=== PATIENT | female | born 1955 | race African-American/Black ===

== ENCOUNTER → 2022-07-13 | Outpatient (CLI) | payer BC ==
[2022-07-13 10:46] LABS: Basophils # (auto) 0.1 10 ^3/uL (0-0.2); Basophils % (auto) 0.9 % (0.0-2.0); Eosinophils # (auto) 0.2 10 ^3/uL (0-0.8); Eosinophils % (auto) 2.9 % (0.0-7.0); Hematocrit 38.3 % (36.0-46.0); Hemoglobin 13.3 g/dL (12.2-16.2); Lymphocytes # (auto) 2.3 10 ^3/uL (0.4-5.4); Mean Corpuscular Hgb Conc. 34.6 g/dL (32.0-36.0); Mean Corpuscular Volume 80.9 fL (80.0-100.0); Monocytes # (auto) 0.5 10 ^3/uL (0-1.3); Monocytes % (auto) 7.3 % (0.0-12.0); Neutrophils # (auto) 3.7 10 ^3/uL (1.6-8.6); Neutrophils % (auto) 54.9 % (37.0-80.0); Nucleated Red Blood Cells % 0.1 %; Red Blood Cells 4.74 10^6/uL (4.0-5.20); Red Cell Distribution Width 15.3 % (11.8-14.3); White Blood Cell 6.8 10^3/uL (4.4-10.8)
[2022-07-13 11:16] LABS: Urine Bacteria NONE SEEN /hpf (None Seen); Urine Blood Negative /uL (Negative); Urine Mucus FEW (None Seen); Urine Specific Gravity 1.026 (1.001-1.035); Urine WBC 5 /hpf (0 - 5)
[2022-07-13 11:17] LABS: Potassium 3.6 mmol/L (3.5-5.1)
[2022-07-13 11:30] LABS: Albumin 3.4 g/dL (3.4-5.0); BUN/Creatinine Ratio 24.4 (10.0-20.0); Bilirubin, Total 0.4 mg/dL (0.2-1.0); Calcium 9.4 mg/dL (8.5-10.1); Total Protein 7.6 g/dL (6.4-8.2)
== END | disposition home or self-care (01) ==
LOC: LAB 09:56
PROVIDERS: ATTEND Family Medicine
DX: E11.65 Type 2 diabetes mellitus with hyperglycemia (principal); I10 Essential (primary) hypertension; E78.5 Hyperlipidemia, unspecified; G89.29 Other chronic pain
CPT/HCPCS: 36415; 80053; 80061; 81001; 83036; 84443; 85025

== ENCOUNTER → 2022-07-31 | Outpatient (CLI) | payer BC | END | disposition home or self-care (01) | LOC: LAB 06:37 | PROVIDERS: ATTEND Family Medicine | DX: E11.65 Type 2 diabetes mellitus with hyperglycemia (principal); I10 Essential (primary) hypertension; E78.5 Hyperlipidemia, unspecified | CPT/HCPCS: 82270 ==

== ENCOUNTER → 2022-12-21 | Outpatient (CLI) | payer BC ==
[2022-12-21 10:19] LABS: Alanine Aminotransferase 23 U/L (7-40); Alkaline Phosphatase 98 U/L (46-116); Anion Gap 4 (5-15); Aspartate Aminotransferase 24 U/L (13-40); BUN/Creatinine Ratio 14.2 (10.0-20.0); Bilirubin, Total 0.4 mg/dL (0.2-1.0); Blood Urea Nitrogen 15 mg/dL (9-23); Calcium 9.8 mg/dL (8.7-10.4); Carbon Dioxide 30 mmol/L (20-30); Chloride 108 mmol/L (98-107); Glucose 101 mg/dL (74-106); Potassium 3.8 mmol/L (3.5-5.1); Sodium 142 mmol/L (136-145); Total Protein 7.8 g/dL (5.7-8.2)
[2022-12-21 12:18] LABS: Triglycerides 67 mg/dL (< 150)
[2022-12-21 12:19] LABS: LDL Cholesterol 60 mg/dL (< 100)
[2022-12-21 12:20] LABS: Cholesterol 123 mg/dL (< 200); HDL Cholesterol 49 mg/dL (40-59)
[2022-12-21 12:35] LABS: Albumin 4.4 g/dL (3.2-4.8)
== END | disposition home or self-care (01) ==
LOC: LAB 08:41
PROVIDERS: ATTEND Family Medicine
DX: E11.65 Type 2 diabetes mellitus with hyperglycemia (principal); E78.5 Hyperlipidemia, unspecified
CPT/HCPCS: 36415; 80053; 80061; 83036

== ENCOUNTER 2022-12-29 20:11 | Emergency (ER) | payer BC ==
[~2022-12-29] VITALS: Ht 162.6 cm; Wt 75.9 kg
[2022-12-29 22:38] VITALS: BP 109/55; PULSE 82; RESP 16; TEMP 98.3; O2SAT 98
== END 2022-12-29 23:29 | disposition home or self-care (01) ==
LOC: ER 20:11
DX: S09.90XA Unspecified injury of head, initial encounter (principal); R51.9 Headache, unspecified; I10 Essential (primary) hypertension; Z88.6 Allergy status to analgesic agent; V43.52XA Car driver injured in collision with other type car in traffic accident, initial encounter; Y93.89 Activity, other specified; Y92.410 Unspecified street and highway as the place of occurrence of the external cause; Y99.8 Other external cause status
CPT/HCPCS: 70450; 72131

== ENCOUNTER → 2023-03-22 | Outpatient (CLI) | payer BC | END | disposition home or self-care (01) | LOC: LAB 12:06 | PROVIDERS: ATTEND Family Medicine | DX: Z12.11 Encounter for screening for malignant neoplasm of colon (principal); Z00.01 Encounter for general adult medical examination with abnormal findings | CPT/HCPCS: 82270 ==

== ENCOUNTER → 2023-03-23 | Outpatient (CLI) | payer BC ==
[2023-03-23 08:24] LABS: Basophils # (auto) 0.1 10 ^3/uL (0-0.2); Eosinophils # (auto) 0.1 10 ^3/uL (0-0.8); Hematocrit 36.5 % (36.0-46.0); Hemoglobin 12.5 g/dL (12.2-16.2); Lymphocytes # (auto) 2.6 10 ^3/uL (0.4-5.4); Lymphocytes % (auto) 43.8 % (10.0-50.0); Mean Corpuscular Hemoglobin 27.9 pg (28.0-32.0); Mean Corpuscular Hgb Conc. 34.2 g/dL (32.0-36.0); Mean Corpuscular Volume 81.7 fL (80.0-100.0); Monocytes # (auto) 0.4 10 ^3/uL (0-1.3); Monocytes % (auto) 7.4 % (0.0-12.0); Neutrophils # (auto) 2.7 10 ^3/uL (1.6-8.6); Neutrophils % (auto) 45.8 % (37.0-80.0); Nucleated Red Blood Cells % 0.1 %; Red Blood Cells 4.47 10^6/uL (4.0-5.20); Red Cell Distribution Width 14.8 % (11.8-14.3)
[2023-03-23 08:47] LABS: Urine Bacteria FEW /hpf (None Seen); Urine Blood Negative /uL (Negative); Urine Clarity Clear (Clear); Urine Color Colorless (Yellow); Urine Protein, UAD Negative (Negative); Urine Specific Gravity 1.012 (1.001-1.035); Urine Urobilinogen Normal (Negative); Urine WBC 2 /hpf (0 - 5)
[2023-03-23 08:55] LABS: Alanine Aminotransferase 29 U/L (7-40); Albumin 4.2 g/dL (3.2-4.8); Alkaline Phosphatase 100 U/L (46-116); Anion Gap 9 (5-15); Aspartate Aminotransferase 30 U/L (13-40); BUN/Creatinine Ratio 14.9 (10.0-20.0); Blood Urea Nitrogen 14 mg/dL (9-23); Calcium 9.6 mg/dL (8.5-10.1); Carbon Dioxide 27 mmol/L (20-30); Chloride 107 mmol/L (98-107); Glucose 97 mg/dL (74-106); LDL Cholesterol 67 mg/dL (< 100); Potassium 3.8 mmol/L (3.5-5.1); Sodium 143 mmol/L (136-145); Triglycerides 67 mg/dL (< 150)
[2023-03-23 08:56] LABS: Bilirubin, Total 0.4 mg/dL (0.2-1.0); Cholesterol 130 mg/dL (< 200); HDL Cholesterol 52 mg/dL (40-59); Total Protein 7.3 g/dL (5.7-8.2)
[2023-03-23 09:14] LABS: Uric Acid 6.3 mg/dL (3.1-7.8)
== END | disposition home or self-care (01) ==
LOC: LAB 08:10
PROVIDERS: ATTEND Family Medicine
DX: Z12.11 Encounter for screening for malignant neoplasm of colon (principal); I10 Essential (primary) hypertension; G44.209 Tension-type headache, unspecified, not intractable; Z12.4 Encounter for screening for malignant neoplasm of cervix; E11.65 Type 2 diabetes mellitus with hyperglycemia; E78.5 Hyperlipidemia, unspecified; E79.0 Hyperuricemia without signs of inflammatory arthritis and tophaceous disease; E78.49 Other hyperlipidemia; E88.01 Alpha-1-antitrypsin deficiency
CPT/HCPCS: 36415; 80053; 80061; 81001; 83036; 84443; 84550; 85025

== ENCOUNTER → 2023-11-19 | Outpatient (CLI) | payer BC ==
[2023-11-19 10:14] LABS: Alanine Aminotransferase 20 U/L (7-40); Albumin 4.1 g/dL (3.2-4.8); Alkaline Phosphatase 103 U/L (46-116); Aspartate Aminotransferase 21 U/L (13-40); Bilirubin, Total 0.4 mg/dL (0.2-1.0); Blood Urea Nitrogen 12 mg/dL (9-23); Calcium 9.8 mg/dL (8.7-10.4); Carbon Dioxide 32 mmol/L (20-30); Chloride 111 mmol/L (98-107); Cholesterol 139 mg/dL (< 200); Glucose 101 mg/dL (74-106); HDL Cholesterol 47 mg/dL (40-59); LDL Cholesterol 72 mg/dL (< 100); Sodium 142 mmol/L (136-145); Total Protein 7.1 g/dL (5.7-8.2); Triglycerides 90 mg/dL (< 150)
[2023-11-19 10:16] LABS: Anion Gap -1 (5-15)
== END | disposition home or self-care (01) ==
LOC: LAB 08:24
PROVIDERS: ATTEND Family Medicine
DX: Z12.11 Encounter for screening for malignant neoplasm of colon (principal); I10 Essential (primary) hypertension; E78.2 Mixed hyperlipidemia; R73.09 Other abnormal glucose
CPT/HCPCS: 36415; 80053; 80061; 83036

== ENCOUNTER → 2024-06-04 | Outpatient (CLI) | payer BC ==
[2024-06-04 09:45] LABS: Basophils # (auto) 0.1 10 ^3/uL (0-0.2); Basophils % (auto) 0.8 % (0.0-2.0); Eosinophils # (auto) 0.2 10 ^3/uL (0-0.8); Eosinophils % (auto) 3.2 % (0.0-7.0); Hematocrit 36.4 % (36.0-46.0); Hemoglobin 12.8 g/dL (12.2-16.2); Lymphocytes # (auto) 2.1 10 ^3/uL (0.4-5.4); Lymphocytes % (auto) 34.1 % (10.0-50.0); Mean Corpuscular Hemoglobin 28.9 pg (28.0-32.0); Mean Corpuscular Hgb Conc. 35.2 g/dL (32.0-36.0); Mean Corpuscular Volume 82.1 fL (80.0-100.0); Monocytes # (auto) 0.5 10 ^3/uL (0-1.3); Neutrophils # (auto) 3.2 10 ^3/uL (1.6-8.6); Neutrophils % (auto) 52.9 % (37.0-80.0); Nucleated Red Blood Cells % 0.1 %; Platelet Count (auto) 242 10^3/uL (140-450); Red Blood Cells 4.43 10^6/uL (4.0-5.20); Red Cell Distribution Width 15.4 % (11.8-14.3); White Blood Cell 6.1 10^3/uL (4.4-10.8)
[2024-06-04 09:59] LABS: Alanine Aminotransferase 28 U/L (7-40); Albumin 4.4 g/dL (3.2-4.8); Alkaline Phosphatase 108 U/L (46-116); Anion Gap 7 (5-15); Aspartate Aminotransferase 29 U/L (13-40); BUN/Creatinine Ratio 17.8 (10.0-20.0); Blood Urea Nitrogen 19 mg/dL (9-23); Calcium 9.7 mg/dL (8.7-10.4); Carbon Dioxide 28 mmol/L (20-31); LDL Cholesterol 67 mg/dL (< 100); Potassium 4.2 mmol/L (3.5-5.1); Sodium 144 mmol/L (136-145); Total Protein 7.4 g/dL (5.7-8.2); Triglycerides 70 mg/dL (< 150)
[2024-06-04 10:00] LABS: Bilirubin, Total 0.4 mg/dL (0.2-1.0); Chloride 109 mmol/L (98-107); Cholesterol 136 mg/dL (< 200); Glucose 103 mg/dL (74-106); HDL Cholesterol 52 mg/dL (40-59)
== END | disposition home or self-care (01) ==
LOC: LAB 09:02
PROVIDERS: ATTEND Family Medicine
DX: I10 Essential (primary) hypertension (principal); E78.49 Other hyperlipidemia; E88.818 Other insulin resistance
CPT/HCPCS: 36415; 80053; 80061; 83036; 84443; 85025

== ENCOUNTER → 2024-10-02 | Outpatient (CLI) | payer BC ==
[2024-10-02 10:27] LABS: Hematocrit 37.2 % (36.0-46.0); Hemoglobin 12.7 g/dL (12.2-16.2); Mean Corpuscular Hemoglobin 28.1 pg (28.0-32.0); Mean Corpuscular Volume 82.1 fL (80.0-100.0); Nucleated Red Blood Cells % 0.0 %
[2024-10-02 10:41] LABS: Urine Protein, UAD Negative (Negative)
[2024-10-02 10:49] LABS: Alanine Aminotransferase 24 U/L (7-40); Alkaline Phosphatase 106 U/L (46-116); Anion Gap 9 (5-15); BUN/Creatinine Ratio 13.9 (10.0-20.0); Blood Urea Nitrogen 15 mg/dL (9-23); Calcium 10.2 mg/dL (8.7-10.4); Carbon Dioxide 28 mmol/L (20-31); Glucose 96 mg/dL (74-106); Potassium 3.8 mmol/L (3.5-5.1); Sodium 144 mmol/L (136-145); Total Protein 7.5 g/dL (5.7-8.2); Triglycerides 65 mg/dL (< 150)
[2024-10-02 10:50] LABS: Albumin 4.5 g/dL (3.2-4.8); Bilirubin, Total 0.4 mg/dL (0.2-1.0); Cholesterol 137 mg/dL (< 200); HDL Cholesterol 51 mg/dL (40-59)
[2024-10-02 10:52] LABS: Chloride 107 mmol/L (98-107)
[2024-10-02 11:51] LABS: Uric Acid 7.5 mg/dL (3.1-7.8)
== END | disposition home or self-care (01) ==
LOC: LAB 09:35
PROVIDERS: ATTEND Family Medicine
DX: E78.2 Mixed hyperlipidemia (principal); I10 Essential (primary) hypertension; E78.5 Hyperlipidemia, unspecified; E79.0 Hyperuricemia without signs of inflammatory arthritis and tophaceous disease; E88.819 Insulin resistance, unspecified
CPT/HCPCS: 36415; 80053; 80061; 81001; 83036; 84443; 84550; 85025

== ENCOUNTER 2024-10-31 16:34 | Outpatient (CLI) | payer BC | END 2024-11-02 17:00 | disposition home or self-care (01) | LOC: LAB 16:34 | PROVIDERS: ATTEND Family Medicine | DX: Z12.11 Encounter for screening for malignant neoplasm of colon (principal); I10 Essential (primary) hypertension; E78.2 Mixed hyperlipidemia; E79.0 Hyperuricemia without signs of inflammatory arthritis and tophaceous disease; R73.03 Prediabetes; E66.3 Overweight; K59.04 Chronic idiopathic constipation | CPT/HCPCS: 82270 ==

== ENCOUNTER 2025-01-27 08:38 | Outpatient (CLI) | payer BC ==
[2025-01-27 09:00] LABS: Hematocrit 36.6 % (36.0-46.0); Hemoglobin 12.5 g/dL (12.2-16.2); Mean Corpuscular Hemoglobin 27.9 pg (28.0-32.0); Mean Corpuscular Volume 81.2 fL (80.0-100.0); Nucleated Red Blood Cells % 0.1 %
[2025-01-27 09:59] LABS: Alanine Aminotransferase 23 U/L (7-40); Albumin 4.2 g/dL (3.2-4.8); Alkaline Phosphatase 109 U/L (46-116); Anion Gap 8 (5-15); BUN/Creatinine Ratio 15.9 (10.0-20.0); Blood Urea Nitrogen 17 mg/dL (9-23); Calcium 9.2 mg/dL (8.7-10.4); Carbon Dioxide 29 mmol/L (20-31); Chloride 106 mmol/L (98-107); Glucose 99 mg/dL (74-106); Potassium 3.8 mmol/L (3.5-5.1); Sodium 143 mmol/L (136-145); Total Protein 7.6 g/dL (5.7-8.2); Triglycerides 63 mg/dL (< 150)
[2025-01-27 10:00] LABS: Bilirubin, Total 0.4 mg/dL (0.2-1.0); Cholesterol 129 mg/dL (< 200); HDL Cholesterol 50 mg/dL (40-59)
== END 2025-01-27 17:00 | disposition home or self-care (01) ==
LOC: LAB 08:38
PROVIDERS: ATTEND Family Medicine
DX: I10 Essential (primary) hypertension (principal); E78.5 Hyperlipidemia, unspecified; R73.9 Hyperglycemia, unspecified; M17.12 Unilateral primary osteoarthritis, left knee; Z96.652 Presence of left artificial knee joint
CPT/HCPCS: 36415; 80053; 80061; 83036; 84443; 85025